=== PATIENT | female | born 1955 | race African-American/Black ===

== ENCOUNTER 2019-01-09 05:38 | Emergency (ER) | payer OTHER ==
[~2019-01-09] VITALS: Ht 170.2 cm; Wt 90.0 kg
[2019-01-09] MEDS ORDERED: KETOROLAC 60MG/2ML VIAL IM ONE (06:45)
[2019-01-09] MEDS ORDERED: PREDNISONE 20MG TABLET PO ONE (06:45)
[2019-01-09] MEDS ORDERED: MORPHINE SULFATE 10 MG/ML CPJ IM ONE (06:45)
[2019-01-09 08:33] VITALS: BP 127/73
== END 2019-01-09 08:38 | disposition home or self-care (01) ==
LOC: ER 05:38
DX: M54.42 Lumbago with sciatica, left side (principal); F41.9 Anxiety disorder, unspecified; F32.9 Major depressive disorder, single episode, unspecified
CPT/HCPCS: 96372; 99283; J1885; J2270; J7512

== ENCOUNTER 2019-07-02 04:14 | Emergency (ER) | payer OTHER ==
[~2019-07-02] VITALS: Ht 172.7 cm; Wt 82.0 kg
[2019-07-02] MEDS ORDERED: MORPHINE SULFATE 4 MG/ML CPJ (NOT FOR IM USE) IV STA (06:08)
[2019-07-02] MEDS ORDERED: KETOROLAC 30MG/ML VIAL IV STA (06:08)
[2019-07-02] MEDS ORDERED: DEXAMETHASONE 4MG/ML 1ML VIAL IV ONE (06:15)
[2019-07-02 06:57] LABS: CHLORIDE 107 mEq/L (98-107)
[2019-07-02 07:03] LABS: BASOPHILS % 0.6 % (0.0-2.0); EOSINOPHILS % 3.1 % (0.0-5.0); HEMATOCRIT. 39.5 % (36.0-48.0); HEMOGLOBIN. 13.4 g/dL (12.0-16.0); LYMPHOCYTES % 25.9 % (20.0-50.0); MEAN CORPUSCULAR HEMOGLOBIN 30.4 pg (28.0-32.0); MEAN CORPUSCULAR VOLUME 89.7 fL (81.0-99.0); MEAN PLATELET VOLUME 9.6 fl (7.4-10.4); MONOCYTES % 7.9 % (2.0-8.0); NEUTROPHILS % 62.5 % (40.0-76.0); PLATELET 216 x1000/uL (130-400); RED CELL DISTRIBUTION WIDTH 12.7 % (11.6-14.6)
[2019-07-02 07:15] LABS: CLARITY URINE CLEAR (CLEAR); COLOR URINE YELLOW (YELLOW); KETONES URINE NEGATIVE (NEGATIVE); LEUKOCYTE ESTERASE URINE NEGATIVE (NEGATIVE); NITRITE URINE NEGATIVE (NEGATIVE); OCCULT BLOOD URINE NEGATIVE (NEGATIVE); PH URINE 8.5 (4.5-8.0); PROTEIN URINE NEGATIVE (NEGATIVE); SPECIFIC GRAVITY URINE 1.017 (1.005-1.030)
[2019-07-02] MEDS ORDERED: MORPHINE SULFATE 4 MG/ML CPJ (NOT FOR IM USE) IV ONE (07:45)
[2019-07-02 10:11] VITALS: BP 148/72
== END 2019-07-02 11:13 | disposition short-term general hospital (02) ==
LOC: ER 04:14
DX: M54.5 Low back pain (principal)
CPT/HCPCS: 36415; 80053; 81003; 85025; 93005; 96374; 96375; 96376; 99285; J1100; J1885; J2270; Z7610

== ENCOUNTER 2021-01-16 00:56 | Emergency (ER) | payer SELFPAY ==
[~2021-01-16] VITALS: Ht 165.1 cm; Wt 90.0 kg
[2021-01-16] MEDS ORDERED: MORPHINE SULFATE 4 MG/ML CPJ (NOT FOR IM USE) IV ONE (02:15)
[2021-01-16 02:57] LABS: EOSINOPHILS % 5.6 % (0.0-5.0); HEMOGLOBIN. 12.7 g/dL (12.0-16.0); LYMPHOCYTES % 27.5 % (20.0-50.0); MEAN CORPUSCULAR HEMOGLOBIN 30.9 pg (28.0-32.0); MEAN PLATELET VOLUME 9.1 fl (7.4-10.4); MONOCYTES % 7.3 % (2.0-8.0); NEUTROPHILS % 58.6 % (40.0-76.0); PLATELET 175 x1000/uL (130-400); RED BLOOD CELL COUNT 4.11 mill/uL (4.2-5.4); RED CELL DISTRIBUTION WIDTH 12.7 % (11.6-14.6)
[2021-01-16 03:03] LABS: CHLORIDE 110 mEq/L (98-107)
[2021-01-16 03:07] LABS: ETHANOL BLOOD < 10 mg/dL
[2021-01-16 03:12] LABS: CREATINE KINASE 170 IU/L (26-192)
[2021-01-16 05:38] VITALS: BP 133/78
== END 2021-01-16 05:42 | disposition left against medical advice (07) ==
LOC: ER 00:56 → EDUNIT# 00:56 → CANBEDREQ 05:41 → ER 05:42
DX: R41.82 Altered mental status, unspecified (principal); I10 Essential (primary) hypertension
CPT/HCPCS: 36415; 70450; 71045; 80053; 80307; 80320; 80329; 82550; 82962; 83605; 83880; 84443; 84484; 85025; 93005; 99285; Z7610; G0480

== ENCOUNTER 2022-07-05 10:58 | Emergency (ER) | payer MEDICAID ==
[~2022-07-05] VITALS: Ht 170.2 cm; Wt 97.0 kg
[2022-07-05 11:20] VITALS: BP 164/92
[2022-07-05] MEDS ORDERED: IBUPROFEN 400MG TABLET PO ONE (14:15)
[2022-07-05] MEDS ORDERED: ACETAMINOPHEN 325MG TABLET PO ONE (14:15)
[2022-07-05] MEDS ORDERED: IBUP-2028 MT (15:02)
[2022-07-05] MEDS ORDERED: BENZ100C86 MT (15:02)
== END 2022-07-05 15:25 | disposition home or self-care (01) ==
LOC: ER 11:27
DX: J06.9 Acute upper respiratory infection, unspecified (principal)
CPT/HCPCS: 71046; 99283